=== PATIENT | male | born 1975 | race African-American/Black ===

== ENCOUNTER 2025-06-03 14:39 | Inpatient (IN) | payer OTHER ==
[2025-06-03] MEDS: ONDANSETRON 4 MG/2 ML VIAL IVPB ONE (15:00)
[2025-06-03] MEDS ORDERED: ACETAMINOPHEN INJECTION 100 ML ONE (15:16)
[2025-06-03] MEDS ORDERED: ONDANSETRON 4 MG/2 ML VIAL ONE (15:16)
[2025-06-03 15:17] LABS: MCHC 33.3 g/dl (32.3-36.5); MEAN CELL VOLUME 91.2 fl (79.0-92.2); MEAN PLT VOLUME 10.7 fl (9.4-12.4); RDW 11.8 % (12.2-16.1)
[2025-06-03 15:25] LABS: INR 1.24 (0.83-1.09); PROTHROMBIN TIME (PATIENT) 13.6 SEC (9.7-13.0)
[2025-06-03 15:28] LABS: ACTIVATED PTT 28.2 SECONDS (25.2-36.5)
[2025-06-03 15:38] LABS: BG HCT 47.0 % (35.4-49); VENOUS BASE EXCESS -1.0 mmol/L (-2-2); VENOUS O2 SATURATION 30.1 % (70-80); VENOUS PCO2 52.2 mmHg (38-52); VENOUS PH 7.317 (7.310-7.410)
[2025-06-03] MEDS ORDERED: PIPERACILLIN/TAZOB 4.5 GM 4.5 GM/100 ML BAG IVPB ONE (15:40)
[2025-06-03 15:42] LABS: CO2 25.0 mmol/L (21-32); GLUCOSE,RANDOM 305.0 mg/dL (74-106)
[2025-06-03 15:45] LABS: CREATININE 1.4 mg/dL (0.55-1.3); SGOT/AST 10.0 U/L (15-37); SGPT/ALT 20.0 U/L (13-61)
[2025-06-03 15:46] LABS: TOT PROT 6.7 g/dl (6.4-8.2)
[2025-06-03] MEDS: ACETAMINOPHEN 1000 MG/100 ML BAG IVPB ONE (15:47)
[2025-06-03 15:48] LABS: ALK PHOS 87.0 U/L (45-117)
[2025-06-03] MEDS: PIPERACILLIN/TAZOB 3.375 GM 4.5 GM in DEXTROSE 5%-WATER - 50 ML IVPB ONE (15:48)
[2025-06-03 15:56] LABS: LACTIC ACID 6.5 mmol/L (0.4-2.0)
[2025-06-03] MEDS: SODIUM CHLORIDE 0.9% 500 ML INFUS.BAG IV ONE ×2 (16:14→17:44)
[2025-06-03 16:36] LABS: EPI CELLS >36 /uL (0-25.1); HYALINE CASTS 2 /uL (0-3.1); URINE APPEARANCE CLOUDY; URINE BACTERIA 13 /uL (0-1359); URINE BILIRUBIN 1+ (NEGATIVE); URINE COLOR DK YELLOW; URINE GLUCOSE (UA) 3+ (NEGATIVE); URINE KETONE TRACE (NEGATIVE); URINE LEUK ESTERASE TRACE (NEGATIVE); URINE NITRITE NEGATIVE (NEGATIVE); URINE PROTEIN 2+ (NEGATIVE); URINE RBC 20 /uL (0-23.9); URINE UROBILINOGEN 1.0 mg/dL (0.2-1.0); URINE WBC 93 /uL (0-25.8)
[2025-06-03 16:38] LABS: HIV INTERPRETATION NEGATIVE (NEGATIVE)
[2025-06-03 16:41] LABS: HCV DIAGNOSTIC IN-HOUSE W/RFLX NON-REACTIVE (NONREACTIVE)
[2025-06-03] MEDS: VANCOMYCIN PREMIX 1.75 GM 1,750 MG/350 ML PIGGYBACK IVPB ONE (17:27)
[2025-06-03] MEDS: LACTATED RINGERS SOLUTION 1000 ML INFUS.BAG IV ONE (18:07)
[2025-06-03] MEDS: CLINDAMYCIN 900 MG PREMIX IVPB 900 MG/50 ML BAG IVPB ONE (19:50)
[2025-06-03] MEDS: ACETAMINOPHEN 1000 MG/100 ML BAG IVPB PRN (21:37)
[2025-06-03] MEDS: HEPARIN NA (PORCINE) 5,000 UNITS/ML 1ML VIAL SQ SCH (21:38)
[2025-06-03] MEDS: POTASSIUM CHLORIDE ORAL LIQUID 20 MEQ/15 ML PO ONE (21:41)
[2025-06-03 22:06] VITALS: BMI 44.6
[2025-06-03] MEDS: PIPERACILLIN/TAZOB 3.375 GM 3.375 GM in DEXTROSE 5%-WATER - 50 ML IVPB SCH (22:07)
[2025-06-04] MEDS: CLINDAMYCIN 600MG PREMIX IVPB 600 MG/50 ML BAG IVPB SCH ×2 (03:04→09:24)
[2025-06-04] MEDS ORDERED: PROPOFOL 20 ML ONE (04:53)
[2025-06-04] MEDS ORDERED: MIDAZOLAM HCL 2 MG/2 ML SINGLE DOSE VIAL ONE (04:54)
[2025-06-04] MEDS: VANCOMYCIN 1,000 MG VIAL (RESTRICTED TO ID ONLY) IVPB ONE (04:59)
[2025-06-04] MEDS ORDERED: DEXTROSE 5% IVPB SCH ×2 (05:30→17:30)
[2025-06-04] MEDS ORDERED: WATER IVPB SCH ×2 (05:30→17:30)
[2025-06-04] MEDS ORDERED: VANCOMYCIN HCL IVPB SCH ×2 (05:30→17:30)
[2025-06-04] MEDS ORDERED: SUCCINYLCHOLINE CHLORIDE 200 MG/10 ML SYRINGE ONE (05:31)
[2025-06-04] MEDS ORDERED: ACETAMINOPHEN INJECTION 100 ML ONE (05:42)
[2025-06-04] MEDS ORDERED: ONDANSETRON 4 MG/2 ML VIAL ONE (05:48)
[2025-06-04] MEDS ORDERED: KETOROLAC TROMETHAMINE 30 MG/1 ML VIAL ONE (06:01)
[2025-06-04] MEDS: VANCOMYCIN PREMIX 1.75 GM 1,750 MG/350 ML PIGGYBACK IVPB SCH (06:02)
[2025-06-04] MEDS ORDERED: ONDANSETRON 4 MG/2 ML VIAL IVPUSH PRN ×2 (06:24→06:52)
[2025-06-04] MEDS ORDERED: LACTATED RINGERS SOLUTION 1,000 ML IV SCH (06:30)
[2025-06-04] MEDS ORDERED: ACETAMINOPHEN 1000 MG/100 ML BAG IVPB PRN (06:52)
[2025-06-04] MEDS: LACTATED RINGERS SOLUTION 1,000 ML IV SCH (06:53)
[2025-06-04] MEDS: PIPERACILLIN/TAZOB 3.375 GM 3.375 GM in DEXTROSE 5%-WATER - 50 ML IVPB SCH ×3 (06:56→15:17)
[2025-06-04] MEDS ORDERED: INSULIN GLARGINE (LANTUS) 100 UNITS/ML UNITS SQ SCH (07:00)
[2025-06-04] MEDS ORDERED: INSULIN ASPART SLIDING SCALE (NOVOLOG) 1 VIAL SQ SCH (07:00)
[2025-06-04 07:36] LABS: ABSOLUTE IMMATURE GRANULOCYTES 0.06 x10^3/uL (0.0-0.031); BASOPHILS # 0.03 x10^3/uL (0.01-0.08); EOSINOPHIL % 0.1 % (0.8-7.0); EOSINOPHILS # 0.01 x10^3/uL (0.04-0.54); MCHC 33.8 g/dl (32.3-36.5); MEAN CELL VOLUME 90.7 fl (79.0-92.2); MEAN PLT VOLUME 10.7 fl (9.4-12.4); MONOCYTE # 1.14 x10^3/uL (0.30-0.82); MONOCYTE % 8.7 % (5.3-12.2); RDW 11.9 % (12.2-16.1)
[2025-06-04] MEDS: INSULIN GLARGINE (LANTUS) 100 UNITS/ML UNITS SQ SCH (07:56)
[2025-06-04] MEDS: INSULIN ASPART SLIDING SCALE (NOVOLOG) 1 VIAL SQ SCH ×2 (07:57→17:03)
[2025-06-04 08:27] LABS: CO2 24.0 mmol/L (21-32); GLUCOSE,RANDOM 354.0 mg/dL (74-106)
[2025-06-04 08:30] LABS: CREATININE 1.4 mg/dL (0.55-1.3); SGOT/AST 10.0 U/L (15-37); SGPT/ALT 17.0 U/L (13-61)
[2025-06-04 08:31] LABS: TOT PROT 5.8 g/dl (6.4-8.2)
[2025-06-04 08:33] LABS: ALK PHOS 68.0 U/L (45-117)
[2025-06-04] MEDS: LACTATED RINGERS SOLUTION 1,000 ML/1,000 ML INFUS.BAG IV STA (09:25)
[2025-06-04] MEDS: MAGNESIUM SULFATE IN WATER 2 GM/50 ML IVPB IVPB ONE (10:33)
[2025-06-04 10:34] LABS: MCHC 32.8 g/dl (32.3-36.5); MEAN CELL VOLUME 92.0 fl (79.0-92.2); MEAN PLT VOLUME 10.9 fl (9.4-12.4); RDW 11.9 % (12.2-16.1)
[2025-06-04] MEDS: HEPARIN NA (PORCINE) 5,000 UNITS/ML 1ML VIAL SQ SCH ×2 (13:07→15:17)
[2025-06-04] MEDS: VANCOMYCIN HCL IN 5 % DEXTROSE 1,500 MG/300 ML BAG IVPB SCH (17:27)
[2025-06-04] MEDS ORDERED: VANCOMYCIN PREMIX 1.75 GM 1,750 MG/350 ML PIGGYBACK IVPB SCH ×2 (17:30)
[2025-06-04] MEDS ORDERED: CLINDAMYCIN 600MG PREMIX IVPB 600 MG/50 ML BAG IVPB SCH (18:00)
[2025-06-04] MEDS: PIPERACILLIN/TAZOB 4.5 GM 4.5 GM in DEXTROSE 5%-WATER 100 ML IVPB SCH (18:50)
[2025-06-04] MEDS: ACETAMINOPHEN 1000 MG/100 ML BAG IVPB PRN (20:27)
[2025-06-05] MEDS: INSULIN GLARGINE (LANTUS) 100 UNITS/ML UNITS SQ SCH (06:53)
[2025-06-05 07:50] LABS: ABSOLUTE IMMATURE GRANULOCYTES 0.10 x10^3/uL (0.0-0.031); BASOPHILS # 0.03 x10^3/uL (0.01-0.08); EOSINOPHIL % 0.4 % (0.8-7.0); EOSINOPHILS # 0.06 x10^3/uL (0.04-0.54); MCHC 32.9 g/dl (32.3-36.5); MEAN CELL VOLUME 90.7 fl (79.0-92.2); MEAN PLT VOLUME 11.2 fl (9.4-12.4); MONOCYTE # 0.86 x10^3/uL (0.30-0.82); MONOCYTE % 6.3 % (5.3-12.2); RDW 11.8 % (12.2-16.1)
[2025-06-05 08:16] LABS: CO2 26.0 mmol/L (21-32); GLUCOSE,RANDOM 256.0 mg/dL (74-106)
[2025-06-05 08:18] LABS: CREATININE 1.3 mg/dL (0.55-1.3); SGPT/ALT 15.0 U/L (13-61)
[2025-06-05 08:19] LABS: SGOT/AST 18.0 U/L (15-37)
[2025-06-05 08:20] LABS: ALK PHOS 78.0 U/L (45-117); TOT PROT 5.4 g/dl (6.4-8.2)
[2025-06-05 10:06] VITALS: RESP 20
[2025-06-05] MEDS ORDERED: ACETAMINOPHEN 500 MG TABLET (FP) PO PRN (10:17)
[2025-06-05] MEDS: PIPERACILLIN/TAZOB 3.375 GM 3.375 GM in DEXTROSE 5%-WATER - 50 ML IVPB SCH (11:48)
[2025-06-05 16:07] VITALS: BP 130/81; PULSE 78; TEMP 98.2
== END 2025-06-05 15:26 | disposition left against medical advice (07) | DRG 364 ==
LOC: JER 14:39 → JERBED 18:52 → J4W 21:09 → J8W 06-04 13:27
PROVIDERS: ADMIT Internal Medicine; ATTEND Nurse Practitioner Acute Care
PROC: 0D9Q00Z Drainage of Anus with Drainage Device, Open Approach (ICD-10-PCS; principal; 2025-06-04 05:00)
DX: L02.215 Cutaneous abscess of perineum (principal); E87.6 Hypokalemia; N17.9 Acute kidney failure, unspecified; E11.65 Type 2 diabetes mellitus with hyperglycemia; F17.210 Nicotine dependence, cigarettes, uncomplicated; E66.01 Morbid (severe) obesity due to excess calories; Z68.41 Body mass index [BMI] 40.0-44.9, adult
CPT/HCPCS: 36415; 71045-TC-FY; 72193-TC; 80048; 80053; 81003; 82010; 82550; 82553; 82803; 82962; 83036; 83605; 83735; 84100; 84443; 84484; 85025; 85610; 85730; 86140; 86803; 86850; 86900; 86901; 87040; 87070; 87076; 87086; 87205; 87389; 87637-QW; 93005; 93010; 94010; 94760; 99291; J3373; Q9967